=== PATIENT | female | born 1935 | race Caucasian/White ===

== ENCOUNTER → 2023-10-12 | Emergency (ER) | payer OTHER ==
[~2023-10-12] MED LIST: NITROFURAN MACRO 100 MG CAP PO ONE
--- NOTE | 2023-10-12 16:54 | RAD REPORT ---
EXAM DESCRIPTION: CT - Head Brain Wo Cont - 10/12/2023 4:45 pm CLINICAL HISTORY: Alteration of awareness/confusion COMPARISON: None TECHNIQUE: Computed axial tomography of the head was obtained. IV contrast was not requested. All CT scans are performed using dose optimization technique as appropriate and may include automated exposure control or mA/KV adjustment according to patient size. FINDINGS: Some images are degraded by patient motion artifact An intracranial bleed is not seen Prominent cerebral atrophy. Moderate to marked dilatation the ventricles No extra-axial fluid collection is noted. Mild low-density areas within periventricular, deep and subcortical white matter likely represent isc hemic changes secondary to small vessel disease. Fluid within the sinuses/ mastoids is not seen. IMPRESSION: Marked dilatation of the ventricles probably the sequela of atrophy. Normal pressure hyd rocephalus can also have this appearance but is probably less likely. This should be correlated clini kuldeep If patient's symptoms persist MRI of the brain would be recommended
--- NOTE | 2023-10-12 17:09 | RAD REPORT ---
EXAM DESCRIPTION: Babatunde Single View10/12/2023 4:59 pm CLINICAL HISTORY: sob COMPARISON: none FINDINGS: The lungs appear clear of acute infiltrate. The heart is normal size Large hiatal hernia suspected. Further evaluation with PA and lateral chest films recommended
[2023-10-12 17:11] LABS: Absolute Lymphocytes (CBC) 1.8 K/uL (0.7-4.9); Hematocrit 35.1 % (36.0-45.0); Lymphocytes % 21.6 % (15.3-44.8); MCV 90.3 fL (80-100); MPV 8.5 fL (7.6-11.3); Platelets 289 thou/uL (152-406); RBC Red Blood Cell Count 3.89 M/uL (3.86-4.86)
[2023-10-12 17:26] LABS: Potassium 3.8 mEq/L (3.5-5.1); Troponin High Sensitivity 13.5 pg/mL (<58.9)
[2023-10-12 18:15] LABS: Specific Gravity 1.013 (1.005-1.030); Urine Bacteria 20-50 /HPF (<20); Urine Bilirubin NEGATIVE (Negative); Urine Blood Negative (Negative); Urine Clarity Extremely Turbid (Clear); Urine Color Light-Yellow (Yellow); Urine Glucose NEGATIVE (Negative); Urine Mucus Slight /HPF (None Seen); Urine Protein NEGATIVE (Negative); Urine RBC <5 /HPF (None Seen); Urine Urobilinogen Normal (Normal)
--- NOTE | 2023-10-12 18:21 | EDPHYS ---
Physician Documentation [facility] Name: Gayle Alicea Age: 88 yrs Sex: Female : 1935 Arrival Date: 10/12/2023 Time: 16:01 Bed IW10 Private MD: ED Physician Yuri Garcia HPI: 10/12 16:58 This 88 yrs old Female presents to ER via EMS with complaints of Altered mental status. ms3 16:58 88-year-old female with past medical history of hypertension presents to the emergency wi3 department for tremors that began 30 minutes prior to EMS arrival. Patient notes she is also had memory problems and the neighbor stated patient was not acting right. Patient states she had a fall 1 week ago and was seen at [facility]. Patient has been off of her blood pressure medications x 3 days. EMS notes patient's blood pressure 189/106, heart rate 86, blood glucose level 155, temperature 97.6 orally. EMS notes patient stroke assessment negative. Patient is without pain. Patient denies any alleviating or inciting factors. Patient states her symptoms have resolved at this time.. Historical: - Allergies: 16:41 PENICILLINS; me1 16:41 flu vaccine; me1 - Home Meds: 16:41 amlodipine oral [Active]; me1 - PMHx: 16:41 Hypertensive disorder; me1 - Immunization history:: Adult Immunizations up to date. - Social history:: Smoking status: Patient/guardian denies using tobacco, but has a distant history of tobacco abuse. ROS: 16:58 Constitutional: Negative for fever, and chills. Neck: Negative for injury, pain, and ms3 swelling, Cardiovascular: Negative for chest pain, and palpitations. Respiratory: Negative for shortness of breath, cough, wheezing, and pleuritic chest pain, Abdomen/GI: Negative for abdominal pain, nausea, vomiting, diarrhea, and constipation, MS/Extremity: Negative for injury and deformity, Skin: Negative for injury, rash, and discoloration, 16:58 Neuro: Positive for tremor, 16:58 All other systems are negative, Exam: 16:58 Constitutional: This is a well developed, well nourished patient who is awake, alert, ms3 and in no acute distress. Head/Face: Normocephalic, atraumatic. Neck: Trachea midline, no cervical lymphadenopathy. Supple, full range of motion without nuchal rigidity, or vertebral point tenderness. No Meningismus. Chest/axilla: Normal chest wall appearance and motion. Nontender with no deformity. Cardiovascular: Regular rate and rhythm with a normal S1 and S2. No gallops, murmurs, or rubs. Normal PMI, no JVD. No pulse deficits. Respiratory: Lungs have equal breath sounds bilaterally, clear to auscultation and percussion. No rales, rhonchi or wheezes noted. No increased work of breathing, no retractions or nasal flaring. Abdomen/GI: Soft, non-tender, with normal bowel sounds. No distension or tympany. No guarding or rebound. No evidence of tenderness throughout. Skin: Warm, dry with normal turgor. Normal color with no rashes, no lesions, and no evidence of cellulitis. MS/ Extremity: Pulses equal, no cyanosis. Neurovascular intact. Full, normal range of motion. 18:36 ECG was reviewed by the Attending Physician. ms3 Vital Signs: 16:22 BP 155 / 90; Pulse 87; Resp 22; Pulse Ox 96% on R/A; me1 16:35 BP 155 / 90; Pulse 87; Resp 18; Temp 98.4(O); Pulse Ox 98% on R/A; Weight 72.57 kg; me1 Height 5 ft. 4 in. ; 17:00 BP 132 / 85; Pulse 82; Resp 20; Pulse Ox 97% on R/A; me1 18:00 BP 171 / 93; Pulse 90; Resp 24; Pulse Ox 97% on R/A; me1 16:35 Body Mass Index 27.46 (72.57 kg, 162.56 cm) md1 MDM: 16:02 Patient medically screened. ms3 17:00 Differential Diagnosis: CVA, electrolyte abnormality, UTI. ms3 18:17 Data reviewed: vital signs. ED course: Patient signed out to me by previous physician, ecBenoit in brief patient here today for tremors, has reassuring lab work and CT imaging, plan is to follow-up urine studies and likely discharge home.. 18:20 ED course: Urine infectious appearing will start on antibiotics and discharged home. ec2 Return precautions given.. 10/12 16:03 Order name: Basic Metabolic Panel; Complete Time: 17:29 ms3 10/12 16:03 Order name: CBC with Diff; Complete Time: 17:29 ms3 10/12 16:03 Order name: Magnesium; Complete Time: 17:29 ms3 10/12 16:03 Order name: Troponin HS; Complete Time: 17:29 ms3 10/12 16:04 Order name: Urinalysis w/ reflexes; Complete Time: 18:20 ms3 10/12 18:23 Order name: Urine Culture EDMS 10/12 16:03 Order name: XRAY Chest (1 view); Complete Time: 17:29 ms3 10/12 16:03 Order name: CT Head Brain wo Cont; Complete Time: 16:58 ms3 10/12 16:03 Order name: EKG; Complete Time: 16:04 ms3 10/12 16:03 Order name: Cardiac monitoring; Complete Time: 17:30 ms3 10/12 16:03 Order name: EKG - Nurse/Tech; Complete Time: 17:30 ms3 10/12 16:03 Order name: IV Saline Lock; Complete Time: 16:48 ms3 10/12 16:03 Order name: Labs collected and sent; Complete Time: 17:00 ms3 10/12 16:03 Order name: O2 Per Protocol; Complete Time: 16:48 ms3 10/12 16:03 Order name: O2 Sat Monitoring; Complete Time: 16:48 ms3 EC:36 Rate is 82 beats/min. Rhythm is regular. QRS [place] is Normal. DC interval is normal. QRS ms3 interval is normal. QT interval is normal. Clinical impression: NSR w/ Non-specific ST/T Changes and 1st degree AV block. Interpreted by me. Reviewed by me. Administered Medications: 18:38 Drug: Macrobid PO 100 mg PO once; administer with food Route: PO; me1 18:38 Follow up: Response: No adverse reaction me1 Disposition Summary: 10/12/23 18:20 Discharge Ordered Notes: Location: Home ec2 Condition: Stable ec2 Diagnosis - Tremor, unspecified ec2 - UTI/ Urinary tract infection, site not specified ec2 Followup: ec2 - With: Private Physician - When: - Reason: Recheck today's complaints Discharge Instructions: - Discharge Summary Sheet ec2 - Tremor ec2 - Urinary Tract Infection, Adult ec2 Forms: - Medication Reconciliation Form ec2 - Thank You Letter ec2 - Antibiotic Education ec2 - Prescription Opioid Use ec2 - Patient Portal Instructions ec2 - Leadership Thank You Letter ec2 Prescriptions: - Macrobid 100 mg Oral capsule - take 1 capsule ORAL route every 12 hours for 5 days; 10 capsule; Refills: 0, ec2 Product Selection Permitted Signatures: Dispatcher [employer] Jose Garza DO DO ms3 Armida Leal RN RN me1 Yuri Garcia MD MD ec2
--- NOTE | 2023-10-12 18:21 | ER ---
Nurse's Notes [facility] Name: Gayle Alicea Age: 88 yrs Sex: Female : 1935 Arrival Date: 10/12/2023 Time: 16:01 Bed IW10 Private MD: Diagnosis: Tremor, unspecified;UTI/ Urinary tract infection, site not specified Presentation: 10/12 16:35 Chief complaint: EMS states: toned out for "difficulty thinking" and new onset tremors. me1 Hx: anxiety. BP elevated per EMS 198/102. Reports patient has misplaced her bp meds and hasnt had them in 3 days. bp down some, tremors resolved before arrival to ER without medication. 20 g to LAC. BG 155. NSR per EKG. Coronavirus screen: Vaccine status: Patient reports being unvaccinated. Ebola Screen: No symptoms or risks identified at this time. Initial Sepsis Screen: Does the patient meet any 2 criteria? No. Patient's initial sepsis screen is negative. Does the patient have a suspected source of infection? No. Patient's initial sepsis screen is negative. Risk Assessment: Do you want to hurt yourself or someone else? Patient reports no desire to harm self or others. Onset of symptoms was October 12, 2023. 16:35 Method Of Arrival: EMS dc1 16:35 Acuity: RAFA 4 me1 Triage Assessment: 16:41 General: Appears well groomed, well developed, well nourished, Behavior is cooperative, me1 appropriate for age, anxious, Reports c/o "difficulty thinking" and new onset tremors. Hx: anxiety. Pain: Denies pain. Neuro: Level of Consciousness is awake, alert, obeys commands, Oriented to person, place, time, situation, Appropriate for age. Neuro: Reports c/o "difficulty thinking" and new onset tremors. Hx: anxiety. . Cardiovascular: Capillary refill < 3 seconds Patient's skin is warm and dry. Respiratory: Airway is patent Trachea midline Respiratory effort is even, unlabored, Respiratory pattern is regular, symmetrical. Historical: - Allergies: 16:41 PENICILLINS; me1 16:41 flu vaccine; me1 - Home Meds: 16:41 amlodipine oral [Active]; me1 - PMHx: 16:41 Hypertensive disorder; me1 - Immunization history:: Adult Immunizations up to date. - Social history:: Smoking status: Patient/guardian denies using tobacco, but has a distant history of tobacco abuse. Screenin:45 [facility] ED Fall Risk Assessment (Adult) History of falling in the last 3 months, me1 including since admission Yes- fall prone (multiple falls) (3 pts) Confusion or Disorientation No (0 pts) Intoxicated or Sedated No (0 pts) Impaired Gait Yes (1 pt) Mobility Assist Device Used Yes (1 pt) Altered Elimination Yes (1 pt) Score/Fall Risk Level 3 or more points = High Risk Maintained a safe environment, Provided non-skid footwear, Hourly rounding (assess needs \\T\\ fall precautionary measures) done, Used ambulatory aids as needed (educated on \\T\\ assisted with). Abuse screen: Denies threats or abuse. Nutritional screening: No deficits noted. Tuberculosis screening: No symptoms or risk factors identified. Assessment: 16:45 General: See triage assessment. . me1 19:42 General: Patient sitting at nurses station waiting on daughter to pick her up. . me1 Vital Signs: 16:22 BP 155 / 90; Pulse 87; Resp 22; Pulse Ox 96% on R/A; me1 16:35 BP 155 / 90; Pulse 87; Resp 18; Temp 98.4(O); Pulse Ox 98% on R/A; Weight 72.57 kg; me1 Height 5 ft. 4 in. ; 17:00 BP 132 / 85; Pulse 82; Resp 20; Pulse Ox 97% on R/A; me1 18:00 BP 171 / 93; Pulse 90; Resp 24; Pulse Ox 97% on R/A; me1 16:35 Body Mass Index 27.46 (72.57 kg, 162.56 cm) me1 ED Course: 16:02 Patient arrived in ED. ms3 16:02 Jose Avendano DO is Attending Physician. ms3 16:34 Armida Leal, TIN is Primary Nurse. me1 16:39 Triage completed. me1 16:41 Arm band placed on Patient placed in an exam room. me1 16:45 Patient has correct armband on for positive identification. Bed in low position. Call me1 light in reach. Side rails up X2. Provided Education on: POC. Verbalized understanding.. 16:45 No provider procedures requiring assistance completed. Maintain EMS IV. Dressing me1 intact. Good blood return noted. Site clean \\T\\ dry. Gauge \\T\\ site: 20g LAC. 16:47 CT Head Brain wo Cont In Process Unspecified. EDMS 17:00 XRAY Chest (1 view) In Process Unspecified. EDMS 17:00 Basic Metabolic Panel Sent. me1 17:00 CBC with Diff Sent. me1 17:00 Magnesium Sent. me1 17:00 Troponin HS Sent. me1 17:50 Urinalysis w/ reflexes Sent. me1 18:16 Attending Physician role handed off by Jose Avendano DO ec2 18:16 Yuri Garcia MD is Attending Physician. ec2 18:30 Urine Culture Sent. me1 19:14 IV discontinued, intact, bleeding controlled, No redness/swelling at site. Pressure me1 dressing applied. Administered Medications: 18:38 Drug: Macrobid PO 100 mg PO once; administer with food Route: PO; me1 18:38 Follow up: Response: No adverse reaction me1 Medication: 16:45 VIS not applicable for this client. me1 Outcome: 18:20 Discharge ordered by . ec2 19:15 Discharged to home via wheelchair, me1 19:15 Condition: stable 19:15 Discharge instructions given to patient, Instructed on discharge instructions, follow me1 up and referral plans. medication usage, Demonstrated understanding of instructions, follow-up care, medications, Prescriptions given X 1, 20:04 Patient left the ED. me1 Signatures: Dispatcher [employer] EDJose Flood DO DO ms3 Armida Leal, TIN RN me1 Yuri Garcia MD MD ec2
[2023-10-12 20:22] VITALS: BP 171/93; TEMP 98.4; O2SAT 97
== END ==
LOC: ER 16:01
DX: R25.1 Tremor, unspecified (principal); N39.0 Urinary tract infection, site not specified; I10 Essential (primary) hypertension; Z88.0 Allergy status to penicillin; Z88.7 Allergy status to serum and vaccine
CPT/HCPCS: 36415; 70450; 71045; 80048; 81001; 83735; 84484; 85025; 87086; 87088; 93005; 99284